=== PATIENT | female | born 1955 | race Caucasian/White ===

== ENCOUNTER 2018-02-04 08:35 | Outpatient (CLI) | payer OTHER | END 2018-02-04 23:59 | disposition home or self-care (01) | LOC: RAD 08:35 | PROVIDERS: ATTEND Surgery | DX: M23.251 Derangement of posterior horn of lateral meniscus due to old tear or injury, right knee (principal) | CPT/HCPCS: 73721 ==

== ENCOUNTER 2019-07-06 14:11 | Outpatient (CLI) | payer BC, OTHER | END 2019-07-06 23:59 | disposition home or self-care (01) | LOC: US 14:11 | PROVIDERS: ATTEND Surgery | DX: N28.1 Cyst of kidney, acquired (principal) | CPT/HCPCS: 76700 ==

== ENCOUNTER 2019-12-06 09:14 | Outpatient (CLI) | payer OTHER ==
[2019-12-06 11:08] LABS: EOSINOPHILS # (AUTO) 0.2 X10'3 (0-0.9); EOSINOPHILS % (AUTO) 3.5 % (0-6); HEMATOCRIT 46.6 % (35.0-45.0); HEMOGLOBIN 15.9 g/dl (12.0-16.0); LYMPHOCYTES # (AUTO) 1.5 X10'3 (1.1-4.8); LYMPHOCYTES % (AUTO) 34.4 % (21-51); MEAN CORPUSCULAR HEMOGLOBIN 32.7 PG (27.0-31.0); MEAN CORPUSCULAR VOLUME 96.1 FL (78-98); MEAN PLATELET VOLUME 9.4 FL (7.4-10.4); MONOCYTES # (AUTO) 0.5 X10'3 (0-0.9); MONOCYTES % (AUTO) 10.5 % (2-12); NEUTROPHILS # (AUTO) 2.2 X10'3 (1.8-7.7); NEUTROPHILS % (AUTO) 50.6 % (42-75); PLATELET COUNT 129 X10'3 (140-440); RED BLOOD COUNT 4.85 X10'6 (4.20-5.60); RED CELL DISTRIBUTION WIDTH 13.1 % (11.5-14.5); WHITE BLOOD COUNT 4.4 X10'3 (4.5-11.0)
[2019-12-06 11:31] LABS: ALANINE AMINOTRANSFERASE 26 U/L (12-78); ALBUMIN 4.1 G/DL (3.4-5.0); ALKALINE PHOSPHATASE 68 IU/L (46-116); ANION GAP 6 (8-16); ASPARTATE AMINO TRANSFERASE 24 U/L (10-37); BLOOD UREA NITROGEN 13 MG/DL (7-18); BUN/CREATININE RATIO 18.6 (6.6-38.0); CALCIUM 9.1 MG/DL (8.5-10.1); CHLORIDE 103 MMOL/L (99-107); CHOL/HDL RATIO 3.6 (0.00-4.99); CHOLESTEROL 301 MG/DL (0-200); GLUCOSE 106 MG/DL (70-104); HDL CHOLESTEROL 84 MG/DL (35-60); LDL CHOLESTEROL 200 MG/DL (50-100); POTASSIUM 4.3 MMOL/L (3.5-5.1); SODIUM 137 MMOL/L (135-145); TOTAL CARBON DIOXIDE 28.3 MMOL/L (24-32); TOTAL PROTEIN 8.2 G/DL (6.4-8.2); TRIGLYCERIDES 91 MG/DL (20-135); eGFR 84 ML/MIN
[2019-12-07] MEDS ORDERED: RED600TA PO (09:22)
[2019-12-07] MEDS ORDERED: LOSA25TA96 PO (09:22)
== END 2019-12-06 23:59 | disposition home or self-care (01) ==
LOC: LAB 09:14
PROVIDERS: ATTEND Physician Assistant
DX: Z00.00 Encounter for general adult medical examination without abnormal findings (principal); I10 Essential (primary) hypertension; M81.0 Age-related osteoporosis without current pathological fracture; Z79.899 Other long term (current) drug therapy
CPT/HCPCS: 36415; 80053; 80061; 82043; 82570; 84439; 84443; 85025

== ENCOUNTER 2019-12-07 08:49 | Day surgery (SDC) | payer OTHER ==
[~2019-12-07] VITALS: Ht 172.7 cm; Wt 70.0 kg
[2019-12-07 09:00] VITALS: BP 144/79
[2019-12-07] MEDS ORDERED: MIDAZolam 5mg/5ml vial ONE (09:10)
[2019-12-07] MEDS ORDERED: fentaNYL/PF 50MCG/1 ML 2ML syringe ONE (09:10)
[2019-12-07] MEDS ORDERED: LOSA25TA96 PO (09:22)
[2019-12-07] MEDS ORDERED: RED600TA PO (09:22)
[2019-12-07 10:30] VITALS: BP 103/65
[2019-12-07 10:40] VITALS: BP 113/67
[2019-12-07 10:50] VITALS: BP 116/66
[2019-12-07 11:00] VITALS: BP 116/71
== END 2019-12-07 11:18 | disposition home or self-care (01) ==
LOC: GI LAB 08:49
PROVIDERS: ATTEND Internal Medicine Gastroenterology
DX: Z12.11 Encounter for screening for malignant neoplasm of colon (principal); Z86.010 Personal history of colon polyps
CPT/HCPCS: 45378; G0121; J2250; J3010; J7040; 99152; 99153; A4620

== ENCOUNTER 2020-04-25 09:06 | Outpatient (CLI) | payer BC ==
[~2020-04-25 09:06] MED LIST: LOSA25TA96 PO; RED600TA PO
== END 2020-04-25 23:59 | disposition home or self-care (01) ==
LOC: RAD 09:06
PROVIDERS: ATTEND Physician Assistant
DX: R05 Cough (principal)
CPT/HCPCS: 71046

== ENCOUNTER 2020-05-31 07:30 | Day surgery (SDC) | payer BC ==
[2020-05-24 15:38] LABS: BASOPHILS # (AUTO) 0.1 X10'3 (0-0.2); BASOPHILS % (AUTO) 0.9 % (0-1); EOSINOPHILS # (AUTO) 0.2 X10'3 (0-0.9); EOSINOPHILS % (AUTO) 2.9 % (0-6); LYMPHOCYTES # (AUTO) 2.5 X10'3 (1.1-4.8); MEAN CORPUSCULAR HEMOGLOBIN 32.5 PG (27.0-31.0); MEAN CORPUSCULAR HGB CONC 33.4 g/dL (33.0-36.5); MEAN CORPUSCULAR VOLUME 97.5 FL (78-98); MEAN PLATELET VOLUME 9.4 FL (7.4-10.4); MONOCYTES # (AUTO) 0.8 X10'3 (0-0.9); MONOCYTES % (AUTO) 11.2 % (2-12); NEUTROPHILS # (AUTO) 3.6 X10'3 (1.8-7.7); PRE OP HEMATOCRIT 45.7 % (35.0-45.0); PRE OP HEMOGLOBIN 15.3 g/dL (12.0-16.0); PRE OP PLATELET COUNT 116 X10'3 (140-440); RED BLOOD COUNT 4.69 X10'6 (4.20-5.60); RED CELL DISTRIBUTION WIDTH 13.7 % (11.5-14.5)
[2020-05-24 15:53] LABS: ALBUMIN 4.2 G/DL (3.4-5.0); ALKALINE PHOSPHATASE 87 IU/L (46-116); BLOOD UREA NITROGEN 12 MG/DL (7-18); BUN/CREATININE RATIO 14.3 (6.6-38.0); CHLORIDE 104 MMOL/L (99-107); CREATININE 0.84 MG/DL (0.40-0.90); PRE OP ALT 40 U/L (30-65); PRE OP ANION GAP 9 (8-16); PRE OP AST 43 U/L (10-37); PRE OP GLUCOSE 89 MG/DL (70-104); PRE OP POTASSIUM 4.1 MMOL/L (3.4-5.1); PRE OP SODIUM 139 MMOL/L (135-145); TOTAL CARBON DIOXIDE 25.6 MMOL/L (24-32); TOTAL PROTEIN 8.3 G/DL (6.4-8.2); eGFR 68 ML/MIN
[~2020-05-31] VITALS: Ht 172.7 cm; Wt 72.6 kg
[~2020-05-31 07:30] MED LIST changes: +ATOR40TA PO; +BUPIVAcaine/PF 2.5mg/ml (0.25%) 10ml vial ONE; -RED600TA PO; +ceFAZolin 2gm in dextrose, iso 50 ML IV ONE; +famotidine 20mg tablet PO ONE; +ringers solution, lacted 1,000 ML IV SCH
[2020-05-31] MEDS ORDERED: LIDOcaine 1% 30ml preserv. free vial ONE (07:41)
[2020-05-31 07:45] VITALS: BP 143/81
[2020-05-31] MEDS ORDERED: meperidine/PF 25mg/ml syringe IV PRN ×3 (08:20)
[2020-05-31] MEDS ORDERED: ringers solution, lacted 1,000 ML IV SCH (08:20)
[2020-05-31] MEDS ORDERED: proCHLORperazine 10 MG/2 ml inj IV PRN (08:20)
[2020-05-31] MEDS ORDERED: morphine 4 MG/ML inj SYRINge IV PRN (08:20)
[2020-05-31] MEDS ORDERED: ondansetron/PF 4mg/2ml inj IV PRN (08:20)
[2020-05-31] MEDS ORDERED: morphine 2 MG/ML inj. syringe IV PRN (08:20)
[2020-05-31] MEDS ORDERED: fentaNYL/PF 50MCG/1 ML 2ML syringe ONE (09:06)
[2020-05-31] MEDS ORDERED: midazolam 2 mg/2 ml injection ONE (09:07)
[2020-05-31] MEDS ORDERED: ketorolac trometh. 30mg/ml inj. ONE (09:25)
[2020-05-31 10:09] VITALS: BP 109/76
--- NOTE | 2020-05-31 10:09 | NUR ---
Received from OR via [facility] , accompanied by Anesthesiologist DR FARR and report given by Anesthesiolgist. PT ALERT AND ORIENTED. DENIES PAIN. DRSG TO HAND CDI. PT ABLE TO WIGGLE FINGERS, SKIN COLOR TO RIGHT HAND NORMAL.
[2020-05-31 10:19] VITALS: BP 133/89
[2020-05-31 10:29] VITALS: BP 124/79
[2020-05-31 10:39] VITALS: BP 143/76
--- NOTE | 2020-05-31 10:49 | NUR ---
PT STATED READINESS FOR DC TO HOME. COMFORTABLE, WIGGLES FINGER TO RIGHT HAND OFTEN. TOLERATED CRANBERRY JUICE AND UNDERSTANDS ALL DC INSTRUCTIONS. PT DC'D SAFELY VIA W/C TO [facility] [place]. ALL BELONGINGS W/ PT UPON D/C TO HOME INCLUDING CELL PHONE, WALLET AND GLASSES.
== END 2020-05-31 10:49 | disposition home or self-care (01) ==
LOC: PAS 07:30
PROVIDERS: ATTEND Orthopaedic Surgery Hand Surgery
DX: M72.0 Palmar fascial fibromatosis [Dupuytren] (principal); I10 Essential (primary) hypertension; E78.00 Pure hypercholesterolemia, unspecified; M81.0 Age-related osteoporosis without current pathological fracture; Z11.59 Encounter for screening for other viral diseases; Z79.899 Other long term (current) drug therapy; Z90.710 Acquired absence of both cervix and uterus; Z98.890 Other specified postprocedural states; Z87.891 Personal history of nicotine dependence; Z72.89 Other problems related to lifestyle
CPT/HCPCS: 26123; 36415; 80053; 82948; 85025; 93005; A6222; J1885; J2001; J2250; J3010; J3490; U0003; A4215; A4615; A4618; A6449; J7120

== ENCOUNTER 2020-09-17 08:09 | Outpatient (CLI) | payer BC ==
[~2020-09-17 08:09] MED LIST changes: -BUPIVAcaine/PF 2.5mg/ml (0.25%) 10ml vial ONE; -ceFAZolin 2gm in dextrose, iso 50 ML IV ONE; -famotidine 20mg tablet PO ONE; -ringers solution, lacted 1,000 ML IV SCH
[2020-09-17 09:00] LABS: BASOPHILS % (AUTO) 0.8 % (0-1); EOSINOPHILS # (AUTO) 0.2 X10'3 (0-0.9); EOSINOPHILS % (AUTO) 3.5 % (0-6); HEMOGLOBIN 15.2 g/dl (12.0-16.0); LYMPHOCYTES # (AUTO) 2.3 X10'3 (1.1-4.8); LYMPHOCYTES % (AUTO) 46.9 % (21-51); MEAN CORPUSCULAR HEMOGLOBIN 32.7 PG (27.0-31.0); MEAN CORPUSCULAR HGB CONC 33.7 g/dL (33.0-36.5); MEAN CORPUSCULAR VOLUME 97.2 FL (78-98); MEAN PLATELET VOLUME 9.3 FL (7.4-10.4); MONOCYTES # (AUTO) 0.5 X10'3 (0-0.9); MONOCYTES % (AUTO) 10.3 % (2-12); NEUTROPHILS # (AUTO) 1.9 X10'3 (1.8-7.7); NEUTROPHILS % (AUTO) 38.5 % (42-75); PLATELET COUNT 112 X10'3 (140-440); RED BLOOD COUNT 4.63 X10'6 (4.20-5.60); WHITE BLOOD COUNT 4.9 X10'3 (4.5-11.0)
[2020-09-17 09:16] LABS: ALANINE AMINOTRANSFERASE 31 U/L (12-78); ALKALINE PHOSPHATASE 83 IU/L (46-116); ANION GAP 8 (8-16); ASPARTATE AMINO TRANSFERASE 24 U/L (10-37); BILIRUBIN,TOTAL 0.9 MG/DL (0.1-1.0); BLOOD UREA NITROGEN 15 MG/DL (7-18); BUN/CREATININE RATIO 19.5 (6.6-38.0); CALCIUM 9.1 MG/DL (8.5-10.1); CHLORIDE 106 MMOL/L (99-107); CHOL/HDL RATIO 3.2 (0.00-4.99); CHOLESTEROL 246 MG/DL (0-200); CREATININE 0.77 MG/DL (0.40-0.90); GLUCOSE 110 MG/DL (70-104); HDL CHOLESTEROL 76 MG/DL (35-60); LDL CHOLESTEROL 153 MG/DL (50-100); POTASSIUM 4.7 MMOL/L (3.5-5.1); SODIUM 141 MMOL/L (135-145); TOTAL CARBON DIOXIDE 26.6 MMOL/L (24-32); TOTAL PROTEIN 8.1 G/DL (6.4-8.2); TRIGLYCERIDES 94 MG/DL (20-135); eGFR 75 ML/MIN
== END 2020-09-17 23:59 | disposition home or self-care (01) ==
LOC: LAB 08:09
PROVIDERS: ATTEND Physician Assistant
DX: I10 Essential (primary) hypertension (principal); D69.6 Thrombocytopenia, unspecified; Z23 Encounter for immunization; Z79.899 Other long term (current) drug therapy
CPT/HCPCS: 36415; 80053; 80061; 85025

== ENCOUNTER 2024-03-28 07:41 | Outpatient (CLI) | payer MEDICARE ==
[~2024-03-28 07:41] MED LIST changes: +LOSA-415 PO; -LOSA25TA96 PO
== END 2024-03-28 23:59 | disposition home or self-care (01) ==
LOC: MRI 07:41
PROVIDERS: ATTEND Physician Assistant Medical
DX: M51.37 Other intervertebral disc degeneration, lumbosacral region (principal); M48.07 Spinal stenosis, lumbosacral region; F41.1 Generalized anxiety disorder; G89.18 Other acute postprocedural pain; M47.897 Other spondylosis, lumbosacral region; M43.16 Spondylolisthesis, lumbar region; M25.551 Pain in right hip; M16.11 Unilateral primary osteoarthritis, right hip; M43.17 Spondylolisthesis, lumbosacral region
CPT/HCPCS: 72148